=== PATIENT | female | born 1995 | race Native Hawaiian/Other Pacific Islander ===

== ENCOUNTER 2017-11-07 03:14 | Inpatient (IN) | payer OTHER ==
[2017-11-07] MEDS ORDERED: METHYLERGONOVINE 0.2 MG/ML 1 ML AMP IM PRN (04:30)
[2017-11-07] MEDS ORDERED: OXYTOCIN 10 UNIT/ML 1 ML VIAL IM PRN (04:30)
[2017-11-07] MEDS ORDERED: CARBOPROST TROMETHAMINE 250 MCG/ML 1 ML AMP IM PRN (04:30)
[2017-11-07] MEDS ORDERED: TERBUTALINE 1 MG/ML VIAL SQ PRN (04:30)
[2017-11-07] MEDS ORDERED: OXYTOCIN 20 UNITS/1000 ML NS 1,000 ML IV SCH ×2 (04:30→14:19)
[2017-11-07] MEDS ORDERED: LIDOCAINE 1% (PF) 10 MG/ML (30 ML SDV) SQ PRN (04:30)
[2017-11-07] MEDS ORDERED: BUTORPHANOL 1 MG/ML 1 ML VIAL IV PRN (04:33)
[2017-11-07 04:57] LABS: Basophils % (A) 0 %; Eosinophils # (A) 0.1 k/uL (0-0.7); Eosinophils % (A) 1 %; HCT 39.5 % (34.0-46.0); HGB 13.6 gm/dL (11.4-16.0); Lymphocytes % (A) 14 %; MCH 27.5 pg (25.0-35.0); MCHC 34.5 g/dL (31.0-37.0); MCV 79.7 fL (80.0-100.0); Mean Platelet Volume 7.9; Monocytes # (A) 0.6 k/uL (0-1.0); Monocytes % (A) 4 %; Neutrophils # (A) 10.9 k/uL (1.3-7.7); Neutrophils % (A) 79 %; Platelet Count 242 k/uL (150-450); RBC 4.95 m/uL (3.80-5.40); RDW 13.7 % (11.5-15.5); WBC 13.8 k/uL (4.0-11.0)
[2017-11-07 04:59] VITALS: BMI 27.1
[2017-11-07 05:05] LABS: INR 0.9 (<1.2); Partial Thromboplastin Time 23.1 sec (22.0-30.0); Prothrombin Time 9.4 sec (9.0-12.0)
[2017-11-07] MEDS: LACTATED RINGERS 1,000 ML IV SCH ×3 (05:15→12:38)
[2017-11-07 05:18] LABS: ALT 28 U/L (9-52); AST 20 U/L (14-36); Blood Urea Nitrogen 10 mg/dL (7-17); LDH 444 U/L (313-618); Uric Acid 4.8 mg/dL (3.7-7.4)
[2017-11-07 05:45] LABS: Appearance,Urine Clear (Clear); Bacteria,Urine Rare /hpf; Bilirubin,Urine Negative (Negative); Blood,Urine Negative (Negative); Color,Urine Yellow; Glucose,Urine (UA) Negative (Negative); Ketones,Urine Negative (Negative); Leukocyte Esterase,Urine Moderate (Negative); Mucus,Urine Rare /hpf; Nitrite,Urine Negative (Negative); Protein,Urine Trace (Negative); Specific Gravity,Urine 1.012 (1.001-1.035); Squamous Epithelial Cell,Urine 1 /hpf (0-4); Urobilinogen,Urine <2.0 mg/dL (<2.0); WBC,Urine 6 /hpf (0-5)
[2017-11-07] MEDS ORDERED: BUPIVACAINE (PF) 0.25% 30 ML VIAL ONE (05:52)
[2017-11-07] MEDS ORDERED: SODIUM CHLORIDE 0.9% 100 ML BAG ONE (05:52)
[2017-11-07] MEDS ORDERED: fentaNYL (PF) 50 MCG/ML 5 ML AMP ONE (05:52)
[2017-11-07] MEDS ORDERED: ROPIVACAINE 100 MG, fentaNYL (PF) 200 MCG in SODIUM CHLORIDE 0.9% 76 ML EPIDURAL ONE (06:07)
--- NOTE | 2017-11-07 08:44 | P.HPOB ---
History of Present Illness H&P Date: 11/07/17 Chief Complaint: Contractions This is a 22-year-old female 1 para 0 with an estimated date of confinement of 11/08/2017, estimated gestational age of 39-6/7 weeks, who presented to labor and delivery with complaints of contractions since last evening that have become stronger. She denies any rupture of membranes. course has been uncomplicated. labs: GC/chlamydia-negative Obstetrical ultrasound-normal anatomy Quad screen-within normal limits Hepatitis B surface antigen-negative RPR-nonreactive Rubella-immune Blood type-B+ Antibody screen-negative HIV-nonreactive Hemoglobin-12.7 Random glucose-76 One hour Glucola-90 Group B streptococcus-negative Obstetrical history: Gynecologic history: No history of sexually transmitted diseases. Social history she is single. She currently works as a waiter/waitress club. Review of Systems Constitutional: Denies chills, Denies fever Eyes: denies blurred vision, denies pain Ears, nose, mouth and throat: Denies headache, Denies sore throat Cardiovascular: Denies chest pain, Denies shortness of breath Respiratory: Denies cough Gastrointestinal: Reports abdominal pain (Contractions) Genitourinary: Reports pelvic pain, Reports Musculoskeletal: Reports low back pain Integumentary: Denies pruritus, Denies rash Neurological: Denies numbness, Denies weakness Psychiatric: Denies anxiety, Denies depression Past Medical History Past Medical History: No Reported History History of Any Multi-Drug Resistant Organisms: None Reported Past Surgical History: No Surgical Hx Reported Past Anesthesia/Blood Transfusion Reactions: No Reported Reaction Past Psychological History: No Psychological Hx Reported Smoking Status: Never smoker Past Alcohol Use History: None Reported Past Drug Use History: None Reported - Past Family History Mother Family Medical History: Hypertension Medications and Allergies Home Medications Medication Instructions Recorded Confirmed Type Pnv,Calcium 72/Iron/Folic Acid 1 tab PO DAILY 11/07/17 11/07/17 History [ Plus Tablet] Allergies Allergy/AdvReac Type Severity Reaction Status Date / Time No Known Allergies Allergy Verified 11/07/17 03:15 Exam Osteopathic Statement: *. No significant issues noted on an osteopathic structural exam other than those noted in the History and Physical/Consult. - Vital Signs Vital signs: Vital Signs Temp Pulse Resp BP Pulse Ox 11/07/17 05:16 78 18 141/85 11/07/17 05:07 87 18 141/85 11/07/17 04:50 90 16 142/88 11/07/17 04:29 97.1 F L 90 16 142/88 11/07/17 03:16 98.3 F 85 16 149/99 97 Intake and Output 11/06/17 11/07/17 11/07/17 22:59 06:59 14:59 Intake Total 1000 Balance 1000 Intake: IV 1000 Lactated Ringers 1,000 ml 1000 @ 125 mls/hr IV .Q8H SCOTT Rx#:[id number] Other: # Voids 2 Weight 73.936 kg HEENT: Within normal limits Heart: Regular rate and rhythm Lungs: Clear to auscultation bilaterally Abdomen: Cervix: Initially on admission was 3 cm and currently is 5 cm/100%/-1 station. Artificial rupture of membranes is carried out with thick meconium noted. Extremities: Negative Homans heart tones: Reactive Contractions: Initially were regular but have spaced out now since her epidural. Results Result Diagrams: 11/07/17 04:40 11/07/17 04:58 Abnormal Lab Results - Last 24 Hours (Table) 11/07/17 11/07/17 Range/Units 04:40 05:15 WBC 13.8 H (4.0-11.0) k/uL MCV 79.7 L (80.0-100.0) fL Neutrophils # 10.9 H (1.3-7.7) k/uL Urine Protein Trace H (Negative) Ur Leukocyte Esterase Moderate H (Negative) Urine WBC 6 H (0-5) /hpf Urine Bacteria Rare H (None) /hpf Urine Mucus Rare H (None) /hpf Assessment and Plan (1) 39 weeks gestation of Current Visit: Yes Status: Acute Code(s): Z3A.39 - 39 WEEKS GESTATION OF SNOMED Code(s): 25025387 (2) Meconium in amniotic fluid affecting management of mother in third trimester Current Visit: Yes Status: Acute Code(s): O36.8930 - MATERNAL CARE FOR OTH PROBLEMS, THIRD TRIMESTER, UNSP SNOMED Code(s): 56161326 Plan: Admission for active labor. Expectant management. Will notify E[employer] P[employer] to be available for delivery due to meconium. Oxytocin augmentation of labor.
--- NOTE | 2017-11-07 13:53 | P.PROBDLV ---
Vaginal Delivery Note - . Vaginal Delivery Note: The patient progressed to complete dilation after oxytocin augmentation of labor and artificial rupture membranes with thick meconium noted. She did receive epidural anesthesia. Once reaching complete dilation, she began pushing. Infant's head came to a crown. With one further push, the 's head delivered across the perineum followed by the anterior shoulder. She was instructed to stop pushing and nose and mouth were bulb suctioned. Nuchal cord times one was noted that was reduced around the body with one further push. Infant was placed on mother's abdomen in cry was noted immediately. Cord was clamped and cut and was taken to warmer for evaluation by nursing staff and SALES ACCOUNT LEADER. A viable male was noted with scores of 8 at 1 minute and 9 at 5 minutes. Infant weight is pending at this time. The cord did detach from the placenta and therefore placenta was manually removed. A gloved hand was then placed in after removal placenta and no further placental tissue was obtained. Uterus did contract well after oxytocin was given and uterine massage was carried out. Inspection of the perineum revealed no perineal lacerations. Estimated blood loss was approximately 250 mL's. Both mother and are in stable condition.
[2017-11-07] MEDS ORDERED: BENZOCAINE/MENTHOL SPRAY 1 GM/SPRAY AEROSOL TOPICAL PRN (14:19)
[2017-11-07] MEDS ORDERED: WITCH HAZEL 1 EACH MED..PAD TOPICAL PRN (14:19)
[2017-11-07] MEDS ORDERED: ZOLPIDEM 5 MG TAB PO PRN (14:19)
[2017-11-07] MEDS ORDERED: diphenhydrAMINE 25 MG CAP PO PRN (14:19)
[2017-11-07] MEDS ORDERED: HYDROCORTISONE 2.5% RECTAL CREAM 30 GM TUBE RECTAL PRN (14:19)
[2017-11-07] MEDS ORDERED: ACETAMINOPHEN TAB 325 MG TAB PO PRN (14:19)
[2017-11-07] MEDS ORDERED: LANOLIN CREAM 5 GM TUBE TOPICAL PRN (14:19)
[2017-11-07] MEDS ORDERED: diphenhydrAMINE 50 MG CAP PO PRN (14:19)
[2017-11-07] MEDS ORDERED: SIMETHICONE 80 MG CHEWABLE PO PRN (14:19)
[2017-11-07] MEDS ORDERED: diphenhydrAMINE 50 MG/ML 1 ML VIAL IVP PRN ×2 (14:19)
[2017-11-07] MEDS: IBUPROFEN 600 MG TAB PO PRN ×2 (15:10→21:44)
[2017-11-07 21:32] VITALS: RESP 16
[2017-11-07] MEDS: SENNOSIDES-DOCUSATE SODIUM 1 EACH TAB PO SCH (21:43)
[2017-11-08] MEDS: IBUPROFEN 600 MG TAB PO PRN ×2 (07:42→18:11)
[2017-11-08] MEDS: SENNOSIDES-DOCUSATE SODIUM 1 EACH TAB PO SCH (07:42)
[2017-11-08 08:39] LABS: Basophils % (A) 0 %; Eosinophils # (A) 0.2 k/uL (0-0.7); Eosinophils % (A) 2 %; HCT 34.2 % (34.0-46.0); HGB 11.4 gm/dL (11.4-16.0); Lymphocytes % (A) 17 %; MCH 27.5 pg (25.0-35.0); MCHC 33.5 g/dL (31.0-37.0); MCV 82.3 fL (80.0-100.0); Mean Platelet Volume 7.4; Monocytes # (A) 0.4 k/uL (0-1.0); Monocytes % (A) 4 %; Neutrophils # (A) 8.8 k/uL (1.3-7.7); Neutrophils % (A) 76 %; Platelet Count 238 k/uL (150-450); RBC 4.15 m/uL (3.80-5.40); WBC 11.6 k/uL (4.0-11.0)
--- NOTE | 2017-11-08 12:48 | P.DS ---
Providers Date of admission: 11/07/17 04:25 Expected date of discharge: 11/08/17 Attending physician: Enid Ruiz Primary care physician: Stated None - Discharge Diagnosis(es) (1) 39 weeks gestation of Current Visit: Yes Status: Acute (2) Meconium in amniotic fluid affecting management of mother in third trimester Current Visit: Yes Status: Acute Hospital Course: This is a 22-year-old female 1 para 0 at 39-6/7 weeks who presented to labor and delivery with complaints of contractions. She did have initially some elevated blood pressures and labs were drawn which were normal. She underwent oxytocin augmentation of labor and artificial rupture membranes with thick meconium. She delivered vaginally a viable male on 11/07/2017 with scores of 8 at 1 minute and 9 at 5 minutes and weight of 7 lbs. 6 oz. She did have manual placental removal. course is been essentially uncomplicated. She is breast-feeding. Lochia is decreasing. Pain is fairly well controlled with ibuprofen. She does complain of some lower back pain where her epidural site was. Vital signs are stable. Abdomen is soft with fundus firm and nontender. Extremities show negative Homans. Impression is status post vaginal delivery day #1. Plan is to discharge home today. Routine instructions are given. She will be given prescriptions for ibuprofen and a breast pump. She is advised to follow up in the office in 6 weeks for her check. She is advised to call if she has any further questions or concerns prior to her appointment time. Procedures: Spontaneous vaginal delivery of a viable male infant on 11/07/2017 Patient Condition at Discharge: Stable Plan - Discharge Summary New Discharge Prescriptions: New Ibuprofen [Motrin] 600 mg PO Q6HR PRN #60 tab PRN Reason: Mild Pain Or Fever >= 100.5 Continue Pnv,Calcium 72/Iron/Folic Acid [ Plus Tablet] 1 tab PO DAILY Discharge Medication List Pnv,Calcium 72/Iron/Folic Acid [ Plus Tablet] 1 tab PO DAILY 11/07/17 [ History] Ibuprofen [Motrin] 600 mg PO Q6HR PRN #60 tab 11/08/17 [Rx] Follow up Appointment(s)/Referral(s): Enid Ruiz DO [Doctor of Osteopathic Medicine] - 6 Weeks Activity/Diet/Wound Care/Special Instructions: Instructions 1. Do not begin any exercise program for 3 weeks. 2. Do not resume sexual relations for 3 weeks or longer if uncomfortable. 3. You may take tub baths or showers at any time. 4. You may use tampons if desired after 3 weeks. 5. Keep the area of episiotomy (stitches) clean and dry. 6. If you are not nursing, wear a good fitting, supportive bra during the day and limit fluid intake for at least 1 week to prevent breast engorgement. 7. Call the office, [phone], within the next week to make appointment for your 6 week checkup if it has not already been made. 8. Report any of the following occurrences to the doctor promptly: a. Heavy, excessive bleeding b. Chills, fever c. Burning or frequency of urination d. Pain or redness and breasts if nursing e. Increasing pain or swelling in episiotomy (stitches). In addition to the above instructions, the following additional should be followed: 1. No heavy lifting or straining (exercising) until after 6 week checkup. 2. Keep abdominal incision clean and dry: You may wear a dressing if more comfortable. 3. Make office appointment for 10 days after going home or as instructed by her doctor. Discharge Disposition: HOME SELF-CARE
[2017-11-08] MEDS ORDERED: DIPH,PERTUS(ACELL)TETVAC-LF 0.5 ML VIAL IM ONE (13:27)
[2017-11-08 18:32] VITALS: BP 121/85; PULSE 72; TEMP 98.3
--- NOTE | 2017-11-10 06:43 | P.MSEPDOC ---
Presenting Problems - Arrival Data Date of Arrival on Unit: 11/07/17 Time of Arrival on Unit: 04:30 Mode of Transport: Wheelchair - Complaint OB-Reason for Admission/Chief Complaint: Possible Onset of Labor Medical History - Information : 1 Para: 0 Term: 0 : 0 Abortions: Spontaneous or Elective: 0 Number of Living Children: 0 - Gestational Age Gestational Age by NASRA (wks/days): 39 Weeks and 6 Days - History Comment: high BP's in triage no symptoms Review of Systems - Review of Systems Constitutional: No problems Breast: No problems ENT: No problems Cardiovascular: No problems Respiratory: No problems Gastrointestinal: No problems Genitourinary: No problems Musculoskeletal: No problems Neurological: No problems Skin: No problems Vital Signs - Temperature Temperature: 98.3 F Temperature Source: Oral - Pulse Right Supine Brachial Pulse Rate: 72 Pulse Assessment Method: Automatic Cuff - Respirations Respiratory Rate: 16 Oxygen Delivery Method: Room Air - Blood Pressure Right Arm Supine Blood Pressure: 121/85 Blood Pressure Mean: 97 Blood Pressure Source: Automatic Cuff Medical Screen Scoring (Pre) - Cervical Exam Dilation: 4-7 cm = 2 Effacement: More than 50% = 2 Membranes: Intact - Uterine Contractions Frequency: > or = 36 weeks =2 Duration: > 40 seconds = 2 - Maternal Vital Signs Maternal Temperature: N/A Maternal Blood Pressure: Systolic >139 = 2 Signs of Preeclampsia: N/A Maternal Respirations: N/A - Pain Assessment Pain Location and Character: Abdomen Pain Scale Used: Numeric (1 - 10) Pain Intensity: 6 Pain Management Goal: 5 Pain Description: Cramping Pain Radiation Location: back Pain Frequency: Intermittent Pain Duration: 6 Pain Duration Units: Hours Pain Behavior: Fidgeting Effects of Pain: labor Pain Aggravating Factors: Contractions - Maternal Trauma Maternal Trauma: N/A - Assessment Baseline FHR: 130 Heart Rate - NICHD Category: Category I (Normal) = 0 NST: Reactive Position: N/A Station: N/A - Total Score Total Score (Pre): 10 - Level of Risk Level of Risk: High (10+) Physician Notification (Pre) - Physician Notified Physician/Practitioner Notifed:: Dr. Ruiz Spoke With: Dr. Ruiz New Order Received: Yes - Notification Comment Comment: Dr. Ruiz notified of bp's during recovery, orders for labatelol if sbp >160 or dbp >100 Disposition - Disposition OB Disposition: Admit, LDRP Suite Transferred to:: [address] Discharge Date: 11/07/17 Discharge Time: 18:15 I agree with the RN Medical Screening Exam: Yes Risk & Benefit of care provided described in d/c instruction: Yes Diagnosis: ENCOUNTER FOR FULL-TERM UNCOMPLICATED DELIVERY
== END 2017-11-08 18:15 | disposition home or self-care (01) | DRG 767 ==
LOC: FBPOP 03:14 → 4FBP 04:25
PROVIDERS: ADMIT Obstetrics & Gynecology; ATTEND Obstetrics & Gynecology
PROC: 10E0XZZ Delivery of Products of Conception, External Approach (ICD-10-PCS; principal; 2017-11-07)
PROC: 10D17Z9 Manual Extraction of Products of Conception, Retained, Via Natural or Artificial Opening (ICD-10-PCS; 2017-11-07)
PROC: 00HU33Z Insertion of Infusion Device into Spinal Canal, Percutaneous Approach (ICD-10-PCS; 2017-11-07)
PROC: 3E0R3BZ Introduction of Anesthetic Agent into Spinal Canal, Percutaneous Approach (ICD-10-PCS; 2017-11-07)
PROC: 3E0234Z Introduction of Serum, Toxoid and Vaccine into Muscle, Percutaneous Approach (ICD-10-PCS; 2017-11-08)
DX: O77.0 Labor and delivery complicated by meconium in amniotic fluid (principal); O69.81X0 Labor and delivery complicated by cord around neck, without compression, not applicable or unspecified; O73.0 Retained placenta without hemorrhage; R03.0 Elevated blood-pressure reading, without diagnosis of hypertension; Z37.0 Single live birth; Z3A.39 39 weeks gestation of pregnancy; Z23 Encounter for immunization; Z79.899 Other long term (current) drug therapy; Z82.49 Family history of ischemic heart disease and other diseases of the circulatory system
CPT/HCPCS: 59025; 81001; 82565; 83615; 84450; 84460; 84520; 84550; 85025; 85610; 85730; 90715; 99213

== ENCOUNTER 2018-12-04 18:12 | Emergency (ER) | payer OTHER ==
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
[2018-12-04] MEDS ORDERED: IBUPROFEN 600 MG TAB PO STA (19:11)
[2018-12-04 19:42] VITALS: BP 112/63; PULSE 86; RESP 17; TEMP 98.7
== END 2018-12-04 19:42 | disposition home or self-care (01) ==
LOC: EC 18:12
DX: M54.2 Cervicalgia (principal); S70.311A Abrasion, right thigh, initial encounter; R51 Headache; V53.5XXA Driver of pick-up truck or van injured in collision with car, pick-up truck or van in traffic accident, initial encounter; Y92.410 Unspecified street and highway as the place of occurrence of the external cause
CPT/HCPCS: 70450; 72125; 99284